=== PATIENT | female | born 1990 | race Caucasian/White ===

== ENCOUNTER 2022-09-20 17:16 | Emergency (ER) | payer OTHER, SELFPAY ==
--- NOTE | ~2022-09-20 | XR_ITS ---
EXAMINATION: XR chest 2V Exam Date/Time: 09/20/2022 17:30 CDT HISTORY: Cough chest congestion X 1 DAY Comparison: None. RESULT: Lines, tubes, and devices: None. Lungs and pleura: Clear. Cardiomediastinal silhouette: Normal. Other: No acute osseous or upper abdominal finding. IMPRESSION: No acute cardiopulmonary process. Reviewed, dictated and finalized at location K.
[2022-09-20 17:22] VITALS: BP 118/78; PULSE 93; RESP 17; TEMP 36.3; O2SAT 98
--- NOTE | 2022-09-20 17:24 | ED.URI ---
HPI - URI/Sore Throat General Chief Complaint: Upper Respiratory Infection Stated Complaint: CONGESTION Time Seen by Provider: 09/20/22 17:23 Source: patient and RN notes reviewed Mode of arrival: ambulatory Limitations: no limitations History of Present Illness MD elicited complaint: cough and nasal congestion Onset (ago): day(s) (3) Consistency: constant Severity: moderate Description of mucous: yellow Able to tolerate fluids by mouth: Yes Exacerbating factors: nothing Relieving factors: nothing Associated symptoms: denies other symptoms Treatments prior to arrival: none Related Data Home Medications Medication Instructions Recorded Confirmed No Home Medications 09/20/22 09/20/22 Allergies Allergy/AdvReac Type Severity Reaction Status Date / Time No Known Allergies Allergy Verified 09/20/22 17:20 Review of Systems Review of Systems: All systems reviewed & are unremarkable except as noted in HPI and below Constitutional: Constitutional: Denies chills and Denies fever(s) Respiratory: Respiratory: Reports chest congestion Gastrointestinal: Gastrointestinal: Denies nausea and Denies vomiting Musculoskeletal: Musculoskeletal: Denies myalgias PMFSH Past Medical History Medical History GERD (gastroesophageal reflux disease) Obesity Surgical History Surgical History No history of previous surgery Social History Social History Smoking status: Never smoker Occupation/Education: occupation Additional occupation/education comments: [employer] in [place]. Exam Const: General: healthy appearing, no acute distress and alert Nutritional Appearance: well nourished and obese Orientation/consciousness: patient oriented x3 Limitations: no limitations HENMT: Head: normal to inspection Ears: external ears normal Face/Nose/Sinus: Normal external nose present Face and sinus: normal facial exam Mouth: Yes moist mucous membranes Eyes: Conjunctivae: conjunctivae normal Pupils: Equal, round and reactive pupils present EOM: EOMs intact bilaterally Neck: Neck: normal visual inspection Resp: Effort & Inspection: normal respiratory effort Auscultation: clear to auscultation bilaterally Cardio: Rate: regular rate Rhythm: regular rhythm GI: GI Palp: Yes Soft to palpation and No Tenderness to palpation present (GI) Auscultation: normal bowel sounds Back/Spine/Pelvis: Cervical Spine: cervical ROM normal Thoracic/Lumbar Spine: thoraco-lumbar ROM normal Skin: General skin exam: normal color Rashes: no rashes Neuro: General: patient oriented x3, moves all extremities, no focal motor deficits and CN's II-XI intact bilaterally Speech: normal speech Gait exam (Neuro): Normal gait present Extrem: General: normal to inspection and no clubbing, cyanosis or edema Psych: Mental Status: mental status grossly normal Affect: normal affect Attitude: cooperative Course Vital Signs Vital signs: Vital Signs Temperature 36.3 C L 09/20/22 17:22 Pulse Rate 93 09/20/22 17:22 Respiratory Rate 17 09/20/22 17:22 Blood Pressure 118/78 09/20/22 17:22 Pulse Oximetry 98 09/20/22 17:22 Oxygen Delivery Room Air 09/20/22 17:22 Temperature 36.3 C L 09/20/22 17:22 Pulse Rate 93 09/20/22 17:22 Respiratory Rate 17 09/20/22 17:22 Blood Pressure 118/78 09/20/22 17:22 Pulse Oximetry 98 09/20/22 17:22 Oxygen Delivery Room Air 09/20/22 17:22 MDM - URI/Sore Throat Differential Diagnosis Differential diagnosis: Likely upper respiratory infection, viral infection, bronchitis and pharyngitis Discharge Plan Discharge Clinical Impression: Upper respiratory infection Qualifiers: URI type: acute nasopharyngitis (common cold) Qualified Code(s): J00 - Acute nasopharyngitis [common cold] Patient Disposition: Home, Self
[2022-09-20 18:00] VITALS: O2SAT 98
[2022-09-20 18:21] VITALS: BP 118/78; PULSE 93; RESP 18; TEMP 36.3; O2SAT 98
== END 2022-09-20 18:21 | disposition home or self-care (01) ==
PROVIDERS: Emergency Provider Emergency Medicine
DX: J00 Acute nasopharyngitis [common cold] (principal)
CPT/HCPCS: 71046; 99283